=== PATIENT | female | born 1945 | race Caucasian/White ===

== ENCOUNTER 2017-10-10 08:31 | Emergency (ER) | payer MEDICARE ==
[2017-10-10] MEDS ORDERED: Ondansetron ODT 4 MG TAB ONE (09:05)
[2017-10-10] MEDS ORDERED: Ibuprofen 200 MG TAB ONE (10:00)
--- NOTE | 2017-10-10 11:21 | CT ---
CT BRAIN WITHOUT CONTRAST: Date: 10/10/17 HISTORY: Trauma. COMPARISON: None. FINDINGS: No acute territorial infarct or hemorrhage. No midline shift or mass effect. Calvarium is intact. 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 Left periorbital soft tissue contusion. Calvarium is intact. Paranasal sinuses and mastoids are clear . IMPRESSION: No acute intracranial abnormality. POS: [facility]
--- NOTE | 2017-10-10 11:22 | CT ---
CT FACIAL BONES: Date: 10/10/17 HISTORY: 71-year-old who tripped while walking dogs. Swelling over left infraorbital region. TECHNIQUE: Axial images are obtained with coronal and sagittal reconstructions. 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 The paranasal sinuses are well aerated. The frontal, ethmoid, maxillary, and sphenoid sinuses are well a erated. No evidence of periorbital fractures seen. No osseous lesions seen. The left zygomatic arch i s unremarkable. IMPRESSION: No evidence of facial fractures. POS: [facility]
== END 2017-10-10 10:02 | disposition home or self-care (01) ==
LOC: SCSER 08:31
DX: S01.81XA Laceration without foreign body of other part of head, initial encounter (principal); W01.0XXA Fall on same level from slipping, tripping and stumbling without subsequent striking against object, initial encounter
CPT/HCPCS: 12013; 70450; 70486; 93005; Q0162

== ENCOUNTER 2019-01-04 11:46 | Emergency (ER) | payer MEDICARE ==
[2019-01-04] MEDS ORDERED: HYDROcodone/Acetaminophen 5/325 mg Tablet ONE (12:22)
--- NOTE | 2019-01-04 12:35 | RAD ---
LEFT WRIST THREE VIEWS: HISTORY: Fall. Left wrist pain. FINDINGS: There is an angulated fracture involving the distal radial metaphysis with fracture line extending in to the articular surface. Also noted is a tiny avulsion fracture of the ulnar styloid. POS: [facility]
== END 2019-01-04 13:03 | disposition home or self-care (01) ==
LOC: SCSER 11:46
DX: S52.502A Unspecified fracture of the lower end of left radius, initial encounter for closed fracture (principal); S52.612A Displaced fracture of left ulna styloid process, initial encounter for closed fracture; W01.0XXA Fall on same level from slipping, tripping and stumbling without subsequent striking against object, initial encounter
CPT/HCPCS: 25605

== ENCOUNTER 2019-01-05 09:59 | Day surgery (SDC) | payer MEDICARE ==
[2019-01-05] MEDS ORDERED: Lidocaine 1% PF 5 ML VIAL ONE (10:11)
[2019-01-05] MEDS ORDERED: PROPOFOL 200 MG/20 ML VIAL ONE (10:11)
[2019-01-05] MEDS ORDERED: Ondansetron PF 4 MG/2 ML Vial ONE (10:11)
[2019-01-05] MEDS ORDERED: Dexamethasone 20 MG/5 ML VIAL ONE (10:11)
[2019-01-05] MEDS ORDERED: Metoclopramide HCl 10 MG/2 ML VIAL ONE (10:11)
[2019-01-05] MEDS ORDERED: Bupivacaine HCl 0.5%/Epinephrine 1:200,000/PF 30 ml Vial ONE (10:56)
[2019-01-05] MEDS ORDERED: Fentanyl 100 MCG/2 ML VIAL ONE ×2 (11:46→12:55)
[2019-01-05] MEDS ORDERED: Midazolam HCl 2 mg/2 ml Vial ONE (11:46)
--- NOTE | 2019-01-05 15:34 | RAD ---
INTRAOPERATIVE FLUOROSCOPY: Date: 01/05/19 HISTORY: Left wrist fracture. FINDINGS: Ulnar styloid fracture is redemonstrated. Interval placement of a metallic plate at the level of the distal radius. Alignment is near anatomic. Exposure: 4.5 seconds. 0.10 mGy*cm^2. IMPRESSION: Fluoroscopy as above. POS: [facility]
--- NOTE | 2019-01-05 16:59 | OP ---
DATE OF PROCEDURE: 01/05/2019 PROCEDURE PERFORMED: Open reduction and internal fixation of left distal radius fracture. PREOPERATIVE DIAGNOSIS: Left distal radius fracture with displacement. POSTOPERATIVE DIAGNOSIS: Left distal radius fracture with displacement. COMPLICATIONS: None. ESTIMATED BLOOD LOSS: Minimal. BANK TELLER MACHINE MECHANIC: Luis Alfredo Yu PA-C. ANESTHESIA: General plus regional. IMPLANTS: Synthes volar three hole distal radial locking plate. INDICATIONS: Ms. Rahman is a 73-year-old female, who has fallen. She fractured her left distal radius. She has been indicated for open reduction and internal fixation of the distal radius to restore anatomic alignment and promote healing. Risks have been reviewed in detail. She has elected to proceed with the operation. DESCRIPTION OF PROCEDURE: Ms. Rahman was identified in the preoperative holding area. Her correct extremity was marked. She was carried to the operating room. She was positioned supine. General anesthesia was induced. A multidisciplinary time-out was performed. The left upper extremity was prepped and draped in sterile fashion. At this point, we began with a volar approach to the distal radius. We dissected down through the subcutaneous tissues to the FCR fascia, which was opened. We exposed the underlying pronator quadratus. At this point, the distal radius fracture was exposed using a Archbald elevator. We reduced the fracture using traction and reduction maneuver. We irrigated the wounds. Next, we applied a Synthes 3-hole volar distal radius plate. We placed multiple screws proximally as well as locking screws distally. This locked the plate to the bone and held the reduction well. We took x-ray images confirming this. There were no complications. We filled all remaining screw holes. At this point, we proceeded to close. We closed the deep tissues with 0 Vicryl suture, 2-0 Vicryl suture, and yeni for the skin was used. A sterile dressing and a splint were placed. The patient was taken to the recovery room in good condition without complication. Job ID: [id number]
== END 2019-01-05 15:30 | disposition home or self-care (01) ==
LOC: SDC 09:59
PROVIDERS: ATTEND Orthopaedic Surgery
PROC: 0PSJ04Z Reposition Left Radius with Internal Fixation Device, Open Approach (ICD-10-PCS; principal; 2019-01-05)
DX: S52.502A Unspecified fracture of the lower end of left radius, initial encounter for closed fracture (principal); W19.XXXA Unspecified fall, initial encounter
CPT/HCPCS: 76000; C1713; J0670; J1100; J2001; J2250; J2405; J2704; J2765; J3010

== ENCOUNTER 2019-05-06 09:28 | Outpatient (CLI) | payer MEDICARE ==
[2019-05-06 11:33] LABS: #Eosinphils 0.3 thou/uL (0.0-0.7); #Lymphocytes 2.1 thou/uL (1.20-3.40); #Monocytes 0.5 thou/uL (0.11-0.59); #Neutrophils 3.2 thou/uL (1.40-6.50); %Basophils 0.8 % (0.0-1.0); %Eosinophils 4.2 % (0.0-10.0); %Lymphocytes 33.8 % (21.0-51.0); %Monocytes 8.2 % (0.0-10.0); %Neutrophils 52.9 % (42.0-75.0); Hemoglobin 14.1 g/dL (12.0-16.0); Mean Corpuscular HGB CONC 32.5 g/dL (32.0-36.0); Mean Corpuscular Hemoglobin 29.9 pg (27.0-31.0); Mean Corpuscular Volume 91.9 fL (78.0-98.0); Mean Platelet Volume 8.4 fL (7.4-10.4); Platelet Count 280 thou/uL (130-400); RBC Distribution Width 11.8 % (11.5-14.5); White Blood Cell (WBC) Count 6.1 thou/uL (4.8-10.8)
[2019-05-06 11:39] LABS: Bacteria/HPF None Seen HPF (None Seen); Bilirubin Negative (Negative); Blood, Urine Negative (Negative); Clarity Clear (Clear); Glucose, Urine (Dipstick) Normal (Negative); Leukocyte Negative Leu/uL (Negative); Nitrite Negative (Negative); Protein, Urine (Dipstick) Negative (Neg-Trace); RBC/HPF 0-3 HPF (0-3); Squamous Epithelial 0-3 HPF (0-3); Urobilinogen Normal mg/dL (Less than 2); WBC/HPF 0-3 HPF (0-3)
[2019-05-06 11:57] LABS: Anion Gap 14 mmol/L (10-20); BUN (Urea Nitrogen) 16 mg/dL (9.8-20.1); Calc. Creatinine Clearance 0 mL/min (70-130); Calcium 10.7 mg/dL (7.8-10.44); Carbon Dioxide 29 mmol/L (23-31); Chloride 98 mmol/L (98-107); Estimated GFR-MDRD 67; Glucose 86 mg/dL (83-110); Potassium 4.7 mmol/L (3.5-5.1); Sodium 136 mmol/L (136-145)
--- NOTE | 2019-05-06 17:19 | EKG ---
Test Reason : Blood Pressure : / mmHG Vent. Rate : 056 BPM Atrial Rate : 056 BPM P-R Int : 194 ms QRS Dur : 110 ms QT Int : 460 ms P-R-T Axes : 080 060 059 degrees QTc Int : 443 ms Sinus bradycardia Right bundle branch block Abnormal ECG When compared with ECG of 10-OCT-2017 09:10, Questionable change in QRS axis Confirmed by DR. Eugenio DOMINIQUE ([id number]) on 05/06/2019 5:19:51 PM Referred By: ELLIE Confirmed By:DR. Eugenio DOMINIQUE
== END 2019-05-06 09:29 | disposition home or self-care (01) ==
LOC: LABBT 09:28
PROVIDERS: ATTEND Orthopaedic Surgery Hand Surgery
DX: Z01.818 Encounter for other preprocedural examination (principal); M65.9 Synovitis and tenosynovitis, unspecified
CPT/HCPCS: 80048; 81001; 85025; 93005; 93010

== ENCOUNTER 2019-05-10 05:41 | Day surgery (SDC) | payer MEDICARE ==
[2019-05-06 10:17] VITALS: BMI 20.5
[2019-05-10] MEDS ORDERED: Betamet Acet/Betamet Na Ph 30 MG/5 ML VIAL ONE (06:19)
[2019-05-10] MEDS ORDERED: Bacitracin Zinc Ointment 30 gm TUBE ONE (06:19)
[2019-05-10] MEDS ORDERED: Bupivacaine PF 0.5% 30 ML VIAL ONE (06:19)
[2019-05-10] MEDS ORDERED: Fentanyl 100 MCG/2 ML VIAL ONE ×2 (06:41→10:41)
[2019-05-10] MEDS ORDERED: ceFAZolin Sodium (SDC) 2 GM/100 ML BAG ONE (06:45)
--- NOTE | 2019-05-10 09:41 | RAD ---
RADIOGRAPH LEFT WRIST TWO VIEWS: 05/10/2019 HISTORY: Hardware removal and tendon repair in a 73-year-old female. COMPARISON: Fluoroscopic spot images of 01/05/2019. TECHNIQUE: Four ozfib-mkcaw-cf-view fluoroscopic spot images obtained in the OR with intrinsically low image res olution. FINDINGS: The first two images redemonstrate the volar metallic plate attached to the distal radial diaphysis, metaphysis, and epiphysis, with multiple screws. The second two images demonstrate absence of that h ardware. IMPRESSION: Ongoing removal of open reduction and internal fixation hardware of the distal radius. POS: [facility]
[2019-05-10] MEDS ORDERED: Ketorolac Tromethamine 30 MG/ML VIAL ONE (10:31)
--- NOTE | 2019-05-10 16:06 | OP ---
DATE OF PROCEDURE: 05/10/2019 PREOPERATIVE DIAGNOSIS: Tenosynovitis, all the extensor digitorum tendons. POSTOPERATIVE DIAGNOSES: 1. Tenosynovitis, severe, extensor digitorum communis to the small finger, ring finger, long finger, index finger; extensor pollicis longus; extensor indicis proprius; and extensor digiti minimi. 2. Longitudinal laceration 2.5 cm long to the extensor digitorum communis to the index finger and the extensor digitorum communis to the middle finger. 3. Marked tenosynovitis extended ulnarly towards superficial ulnar nerve as well. COMPLICATIONS: Inadvertent injury to the superficial ulnar nerve with separation of fibers, requiring repair. Also found an implant, one screw head, approximately 0.5 mm protrusion into the extensor digitorum compartment. PROCEDURES PERFORMED: 1. C-arm supervision. 2. Superficial ulnar nerve repair under magnification with 8-0 suture. 3. Removal, deep plate volar radius, distal type. 4. Radical extensor tenosynovectomy to the following tendons;. a. Extensor digitorum communis index finger. b. Extensor indicis proprius. c. Extensor pollicis longus. d. Extensor digitorum communis to the middle finger. e. Extensor digitorum communis to the ring finger. f. Extensor digitorum communis to the small finger. g. Extensor digiti minimi. 5. Tenotomy, middle finger extensor digitorum communis to treat partial tendon laceration longitudinal only 1 cm with a ball of tendon degenerative tissue found. 6. Extensor repair, longitudinal tear, 2.5 cm long, extensor digitorum communis to the index finger. The removal of the volar plate required a volar incision, totally different separate incision. SPECIMEN SPENT: 1. Tenosynovitis from the fourth dorsal compartment. 2. Tenotomy material from the middle finger extensor digitorum communis. DESCRIPTION OF PROCEDURE: After successful general endotracheal anesthesia, the limb was prepped and draped. The patient then had the limb exsanguinated after outlining the dorsal incision, which extended all the way from the mid metacarpals, all the way to 0.2 cm proximal to Serafin's tubercle. This was the area seen for the tenosynovium swelling. We inflated the tourniquet after exsanguination of the limb to 250 mmHg pressure. We made a zigzag incision and carried through skin and subcutaneous tissue. We dissected the entire mass, which curved somewhat ulnarly and in the mass, there was the superficial ulnar nerve. Interfering with dissection, the laceration occurred of superficial ulnar nerve. This was repaired nearly immediately with an 8-0 Nurolon under loupe magnification. We then lifted the retinaculum at a point of 1 cm radial to the Serafin's tubercle, identified the extensor digitorum tendons, identified the extensor pollicis longus and the ECRL and then sparing them. We then completed the extensor retinaculum removal leaving it with an . We then dissected the underlying tenosynovial edema, evacuated straw-colored fluid, immediately saw a very thick tenosynovium, so we did individual tenosynovectomy to the extensor digitorum communis to all fingers, and the extensor indicis proprius, the extensor digiti minimi and extensor pollicis longus. The extensor pollicis longus had the least amount of tenosynovial edema. We noticed there was a longitudinal laceration with a mass or ball of degenerative tendon approximately 1 cm long over approximately 20% of the extensor digitorum communis to the middle finger, so we excised this in a formal tenotomy and sent as specimen. No repair was needed. There was marked tenosynovial swelling with approximately a one-third laceration longitudinal that was 2.5 cm long over the extensor digitorum communis to the index finger and at the end of this, we could see a visible metallic screw head protruding less than 1 mm. For this reason, we knew we would have to remove the plate. We finished the tenosynovectomy, tenotomy, the repaired the longitudinal laceration to the EDC to the index finger with a 5-0 running Prolene suture with excellent effect. We had dissected into the muscle bellies of the tendons of the extensor digitorum communis and removed all tenosynovium to include the tenosynovitis deep overlying the joint capsule. We sent this as specimen as well. We then placed Celestone 5 mL in this wound, covered it with moist Ray-Minal and then turned our attention to the volar incision. The previous volar incision, which was straight, was entered after placing 10 mL of Marcaine. We carried through skin and subcutaneous tissue and found the same interval between the flexor carpi radialis and the radial artery and went down. There was only minimal remnant of the pronator quadratus proximally. We spared this. We then freed all scar tissue off the screws, removed the screws with a separate T8 star racecar driver handle and a screwdriver in. We lifted the plate off and C-arm showed the fracture was completely healed without complication with the plate removed. Distal radioulnar joint was congruent in both planes. We then released the tourniquet, we repaired the retinaculum back on top of the extensor digitorum communis and the third and fourth compartment realizing that this was not an inflammatory arthritis etiology. We then obtained hemostasis. The nerve repair was still intact without loss of tension. The patient then had the wound closed on the palmar side first with 2-0 Vicryl to close the 1 cm remnant of the pronator quadratus, subcutaneous closed with running 4-0 Monocryl and then 4-0 nylon interrupted simple pattern for the epidermal closure. On the dorsal side, we only closed the epidermis with interrupted 4-0 nylon in a mattress pattern. The patient left the operating room without evidence of anesthetic or operative complication. Job ID: [id number]
== END 2019-05-10 12:10 | disposition home or self-care (01) ==
LOC: SDC 05:41
PROVIDERS: ATTEND Orthopaedic Surgery Hand Surgery
PROC: 0LB80ZZ Excision of Left Hand Tendon, Open Approach (ICD-10-PCS; principal; 2019-05-10)
PROC: 0LB80ZZ Excision of Left Hand Tendon, Open Approach (ICD-10-PCS; 2019-05-10)
PROC: 0LB80ZZ Excision of Left Hand Tendon, Open Approach (ICD-10-PCS; 2019-05-10)
DX: M65.9 Synovitis and tenosynovitis, unspecified (principal)
CPT/HCPCS: 76000; 88304; 88305; J0690; J0702; J1885; J3010; S0020

== ENCOUNTER 2019-06-15 13:36 | Outpatient (CLI) | payer MEDICARE ==
--- NOTE | 2019-06-15 14:39 | BD ---
DEXA BONE DENSITY STUDY: Date: 06/15/19 HISTORY: Postmenopausal. FINDINGS: Lumbar Spine: BMD (g/cm2) L1 0.778 T-Score: -1.9 L2 0.812 T-Score: -2.0 L3 0.878 T-Score: -1.9 L4 1.026 T-Score: -0.3 Total 0.886 T-Score: -1.5 Left Femoral Neck: 0.591 T-Score: -2.3 Total Femur: 0.726 T-Score: -1.8 IMPRESSION: 1. Osteopenia of the left femoral neck and lumbar spine. 2. 10 year fracture risk for major osteoporotic fracture is 19% and for a hip fracture is 4.6%. Thes e fracture probabilities are calculated for an untreated patient. POS: [facility]
== END 2019-06-15 13:37 | disposition home or self-care (01) ==
LOC: BICMAMMO 13:36
PROVIDERS: ATTEND Internal Medicine Rheumatology
DX: M81.0 Age-related osteoporosis without current pathological fracture (principal); M85.89 Other specified disorders of bone density and structure, multiple sites
CPT/HCPCS: 77080

== ENCOUNTER 2020-03-16 10:18 | Outpatient (CLI) | payer MEDICARE ==
--- NOTE | 2020-03-16 11:00 | MMO ---
Bilateral MAMMO Bilat Diag DDI+LINO. CLINICAL HISTORY: Patient is 74 years old and is seen for diagnostic exam. The patient has the following family history of breast cancer: sister. The patient has no personal history of cancer. The patient has a history of right Lumpectomy in 2018 - benign and right needle biopsy - unknown year. VIEWS: The views performed were: bilateral craniocaudal with tomosynthesis; bilateral mediolateral oblique with tomosynthesis; and bilateral mediolateral with tomosynthesis. FILMS COMPARED: The present examination has been compared to prior imaging studies performed at [facility] on 02/26/2018, 08/19/2018, 02/10/2019 and 07/27/2019. This study has been interpreted with the assistance of computer-aided detection. MAMMOGRAM FINDINGS: There are scattered fibroglandular densities. Finding 1: There are stable benign appearing calcifications seen in both breasts. Finding 2: There is a stable post-surgical scar seen in the right breast. There are no suspicious masses, suspicious calcifications, or new areas of architectural distortion. IMPRESSION: THERE IS NO MAMMOGRAPHIC EVIDENCE OF MALIGNANCY. A ROUTINE FOLLOW-UP MAMMOGRAM IN 1 YEAR IS RECOMMENDED. THE RESULTS OF THIS EXAM WERE SENT TO THE PATIENT. ACR BI-RADS Category 2 - Benign finding MAMMOGRAPHY NOTE: 1. A negative mammogram report should not delay a biopsy if a dominant of clinically suspicious mass is present. 2. Approximately 10% to 15% of breast cancers are not detected by mammography. 3. Adenosis and dense breasts may obscure an underlying neoplasm. Reported by: STANFORD DEL RIO MD Electonically Signed: [id number]
== END 2020-03-16 10:19 | disposition home or self-care (01) ==
LOC: BICMAMMO 10:18
PROVIDERS: ATTEND Family Medicine
DX: Z08 Encounter for follow-up examination after completed treatment for malignant neoplasm (principal); Z85.3 Personal history of malignant neoplasm of breast
CPT/HCPCS: 77066; G0279

== ENCOUNTER 2021-09-19 10:06 | Outpatient (CLI) | payer MEDICARE | END 2021-09-19 10:07 | disposition home or self-care (01) | LOC: BICMAMMO 10:06 | PROVIDERS: ATTEND Family Medicine | DX: Z08 Encounter for follow-up examination after completed treatment for malignant neoplasm (principal); N64.89 Other specified disorders of breast; Z85.3 Personal history of malignant neoplasm of breast; Z80.3 Family history of malignant neoplasm of breast | CPT/HCPCS: 77066; G0279 ==

== ENCOUNTER 2022-03-24 08:33 | Outpatient (CLI) | payer MEDICARE | END 2022-03-24 08:34 | disposition home or self-care (01) | LOC: BICMAMMO 08:33 | PROVIDERS: ATTEND Family Medicine | DX: Z08 Encounter for follow-up examination after completed treatment for malignant neoplasm (principal); Z85.3 Personal history of malignant neoplasm of breast | CPT/HCPCS: 19083; 76642; 77065; 88305; 88341; 88342; G0279 ==

== ENCOUNTER 2023-04-05 10:11 | Outpatient (CLI) | payer MEDICARE | END 2023-04-05 10:12 | disposition home or self-care (01) | LOC: SCSRAD 10:11 | PROVIDERS: ATTEND Nurse Practitioner Family | DX: S69.92XA Unspecified injury of left wrist, hand and finger(s), initial encounter (principal); S62.321A Displaced fracture of shaft of second metacarpal bone, left hand, initial encounter for closed fracture; S62.323A Displaced fracture of shaft of third metacarpal bone, left hand, initial encounter for closed fracture; S62.325A Displaced fracture of shaft of fourth metacarpal bone, left hand, initial encounter for closed fracture; M79.89 Other specified soft tissue disorders; M81.0 Age-related osteoporosis without current pathological fracture; M19.042 Primary osteoarthritis, left hand; M19.032 Primary osteoarthritis, left wrist ==